=== PATIENT | male | born 1965 | race Caucasian/White ===

== ENCOUNTER 2018-05-31 08:00 | Outpatient (AMBR) | payer MEDICAID, SELFPAY ==
--- NOTE | 2018-05-07 11:33 | PT.ODAYNRPT ---
PT Outpatient Daily Note Date of Service: May 07, 2018 OP Daily Note Visit Reasons: knee Outpatient Physical Therapy Treatment Date: 05/07/18 Subjective: About the same as time of evaluation Objective: See F/S for therex MT: PPM into knee flexion at EOB x7' with overpressure Assessment: End-range pain limits flexion overpressure tolerance. Pt would benefit from static progressive ROM device. Plan: Continue per POC, improve knee ROM Length of Time (minutes) of Treatment: 30 Minutes Office Procedures PT Procedures PT Date of Service: 05/07/18 OP PT Eval Mod Complex 30 minutes: Yes
--- NOTE | 2018-05-09 09:56 | PT.ODAYNRPT ---
PT Outpatient Daily Note Date of Service: May 09, 2018 OP Daily Note Visit Reasons: knee Outpatient Physical Therapy Treatment Date: 05/09/18 Subjective: Increased soreness after last visit Objective: See F/S for therex MT: PPM into knee extension x7' with overpressure Assessment: End-range pain limits flexion overpressure tolerance. Pt would benefit from static progressive ROM device. Plan: Continue per POC, improve knee ROM Length of Time (minutes) of Treatment: 30 Minutes Office Procedures PT Procedures PT Date of Service: 05/07/18 Therapeutic Exercise 30 minutes: Yes PT Procedures PT Date of Service: 05/09/18 Therapeutic Exercise 30 minutes: Yes
--- NOTE | 2018-05-14 08:50 | PT.ODAYNRPT ---
PT Outpatient Daily Note Date of Service: May 14, 2018 OP Daily Note Visit Reasons: knee Outpatient Physical Therapy Treatment Date: 05/14/18 Subjective: Increased soreness after last visit Objective: See F/S for therex Assessment: Pt has attended 3/12 Rx visits and made slow progress with knee ROM with end-range pain that limits flexion overpressure tolerance. Pt would benefit from static progressive ROM device. Plan: Continue per POC, improve knee ROM Length of Time (minutes) of Treatment: 30 Minutes Office Procedures PT Procedures PT Date of Service: 05/07/18 Therapeutic Exercise 30 minutes: Yes PT Procedures PT Date of Service: 05/09/18 Therapeutic Exercise 30 minutes: Yes PT Procedures PT Date of Service: 05/14/18 Therapeutic Exercise 30 minutes: Yes
--- NOTE | 2018-05-16 08:36 | PT.ODAYNRPT ---
PT Outpatient Daily Note Date of Service: May 16, 2018 OP Daily Note Visit Reasons: knee Outpatient Physical Therapy Treatment Date: 05/16/18 Subjective: The non-surgical knee is very painful. The surgical knee is not painful with standing for about 6 hours at work. Objective: See F/S for therex MT: PPM into knee flexion with STM x7' Assessment: Slow progress with knee ROM with end-range pain and myofascial tightness that limits flexion overpressure tolerance. Pt would benefit from static progressive ROM device. Plan: Continue per POC, improve knee ROM Length of Time (minutes) of Treatment: 30 Minutes Office Procedures PT Procedures PT Date of Service: 05/07/18 Therapeutic Exercise 30 minutes: Yes PT Procedures PT Date of Service: 05/09/18 Therapeutic Exercise 30 minutes: Yes PT Procedures PT Date of Service: 05/14/18 Therapeutic Exercise 30 minutes: Yes PT Procedures PT Date of Service: 05/16/18 Therapeutic Exercise 30 minutes: Yes
--- NOTE | 2018-05-21 10:48 | PT.ODAYNRPT ---
PT Outpatient Daily Note Date of Service: May 21, 2018 OP Daily Note Visit Reasons: knee Outpatient Physical Therapy Treatment Date: 05/21/18 Subjective: The non-surgical knee is very painful. The surgical knee is not painful with standing for about 6 hours at work. Objective: See F/S for therex MT: PPM into knee extension x5' Assessment: Slow progress with knee ROM with end-range pain and myofascial tightness that limits flexion overpressure tolerance. Pt would benefit from static progressive ROM device. Improved extension PROM. Plan: Continue per POC, improve knee ROM Length of Time (minutes) of Treatment: 30 Minutes Office Procedures PT Procedures PT Date of Service: 05/07/18 Therapeutic Exercise 30 minutes: Yes PT Procedures PT Date of Service: 05/21/18 Therapeutic Exercise 30 minutes: Yes PT Procedures PT Date of Service: 05/09/18 Therapeutic Exercise 30 minutes: Yes PT Procedures PT Date of Service: 05/14/18 Therapeutic Exercise 30 minutes: Yes PT Procedures PT Date of Service: 05/16/18 Therapeutic Exercise 30 minutes: Yes
--- NOTE | 2018-05-23 08:47 | PT.ODAYNRPT ---
PT Outpatient Daily Note Date of Service: May 23, 2018 OP Daily Note Visit Reasons: knee Outpatient Physical Therapy Treatment Date: 05/23/18 Subjective: The non-surgical knee is very painful. The surgical knee is not painful with standing for about 6 hours at work. Objective: See F/S for therex MT: PPM into knee extension x5' Assessment: Slow progress with knee ROM with end-range pain and myofascial tightness that limits flexion overpressure tolerance. Pt would benefit from static progressive ROM device. Improved extension PROM slightly. Plan: Continue per POC, improve knee ROM Length of Time (minutes) of Treatment: 30 Minutes Office Procedures PT Procedures PT Date of Service: 05/07/18 Therapeutic Exercise 30 minutes: Yes PT Procedures PT Date of Service: 05/21/18 Therapeutic Exercise 30 minutes: Yes PT Procedures PT Date of Service: 05/23/18 Therapeutic Exercise 30 minutes: Yes PT Procedures PT Date of Service: 05/09/18 Therapeutic Exercise 30 minutes: Yes PT Procedures PT Date of Service: 05/14/18 Therapeutic Exercise 30 minutes: Yes PT Procedures PT Date of Service: 05/16/18 Therapeutic Exercise 30 minutes: Yes
--- NOTE | 2018-05-31 15:21 | PT.ODAYNRPT ---
PT Outpatient Daily Note Date of Service: May 31, 2018 OP Daily Note Visit Reasons: knee Outpatient Physical Therapy Treatment Date: 05/31/18 Subjective: The non-surgical knee is very painful. The surgical knee is not painful with standing for about 6 hours at work but ROM hasn't changed in that knee. Objective: See F/S for therex MT: PPM into knee extension x5' with STM and [place] to popliteal fossa Assessment: Slow progress with knee ROM with end-range pain and myofascial tightness that limits flexion overpressure tolerance. Pt would benefit from static progressive ROM device. Improved extension PROM slightly. Pt can ambulate with improved heel strike with cues and the mirror. Plan: Continue per POC Length of Time (minutes) of Treatment: 30 Minutes Office Procedures PT Procedures PT Date of Service: 05/07/18 Therapeutic Exercise 30 minutes: Yes PT Procedures PT Date of Service: 05/21/18 Therapeutic Exercise 30 minutes: Yes PT Procedures PT Date of Service: 05/23/18 Therapeutic Exercise 30 minutes: Yes PT Procedures PT Date of Service: 05/09/18 Therapeutic Exercise 30 minutes: Yes PT Procedures PT Date of Service: 05/14/18 Therapeutic Exercise 30 minutes: Yes PT Procedures PT Date of Service: 05/16/18 Therapeutic Exercise 30 minutes: Yes PT Procedures PT Date of Service: 05/31/18 Therapeutic Exercise 30 minutes: Yes
== END 2018-06-01 23:59 | disposition home or self-care (01) ==
PROVIDERS: PCP Physician Assistant; Referring Provider Physician Assistant; Visit Provider Orthopaedic Surgery
DX: T84.82XD Fibrosis due to internal orthopedic prosthetic devices, implants and grafts, subsequent encounter (principal); M25.562 Pain in left knee; M62.89 Other specified disorders of muscle
CPT/HCPCS: 97110

== ENCOUNTER → 2025-04-28 | Outpatient (CLI) | payer OTHER, MEDICAID, SELFPAY ==
[2025-04-28 15:57] LABS: Prostate Specific Antigen 1.15 ng/mL (0-4.00)
== END | disposition home or self-care (01) ==
LOC: COPL 14:18
PROVIDERS: PCP Family Medicine; Referring Provider Urology; Visit Provider Urology
DX: R97.20 Elevated prostate specific antigen [PSA] (principal)
CPT/HCPCS: 36415; 84153

== ENCOUNTER → 2025-04-28 | Outpatient (BNVA) | payer BC, MEDICAID, SELFPAY | END | disposition home or self-care (01) | PROVIDERS: PCP Family Medicine; Referring Provider Family Medicine; Visit Provider Urology | DX: N40.1 Benign prostatic hyperplasia with lower urinary tract symptoms (principal); N13.8 Other obstructive and reflux uropathy; Z87.442 Personal history of urinary calculi; I10 Essential (primary) hypertension; E78.5 Hyperlipidemia, unspecified; E66.9 Obesity, unspecified; Z71.3 Dietary counseling and surveillance; Z68.34 Body mass index [BMI] 34.0-34.9, adult; Z86.718 Personal history of other venous thrombosis and embolism | CPT/HCPCS: 81003; 99213; G0463 ==

== ENCOUNTER → 2025-06-23 | Outpatient (BNVA) | payer OTHER, MEDICAID, SELFPAY | END | disposition home or self-care (01) | PROVIDERS: PCP Family Medicine; Referring Provider Family Medicine; Visit Provider Urology | DX: N40.1 Benign prostatic hyperplasia with lower urinary tract symptoms (principal); N13.8 Other obstructive and reflux uropathy; R39.198 Other difficulties with micturition; Z86.718 Personal history of other venous thrombosis and embolism; E66.9 Obesity, unspecified; Z68.32 Body mass index [BMI] 32.0-32.9, adult | CPT/HCPCS: 76872 ==

== ENCOUNTER → 2025-06-26 | Outpatient (BNVA) | payer OTHER, MEDICAID, SELFPAY | END | disposition home or self-care (01) | PROVIDERS: PCP Family Medicine; Referring Provider Family Medicine; Visit Provider Urology | DX: N40.1 Benign prostatic hyperplasia with lower urinary tract symptoms (principal); R39.12 Poor urinary stream; Z86.718 Personal history of other venous thrombosis and embolism; E66.9 Obesity, unspecified | CPT/HCPCS: 51741; 51798 ==